=== PATIENT | female | born 1945 | race Caucasian/White ===

== ENCOUNTER 2016-11-22 06:29 | Inpatient (IN) | payer MEDICARE, OTHER ==
[~2016-11-22] VITALS: Ht 157.5 cm; Wt 128.2 kg
[~2016-11-22 06:29] MED LIST: ALLO100T30 PO; ASPI-515; ASPI-621 PO; CARV-39 PO; CARV25TA12 PO; CARV6.252; EZET10TA18 PO; FURO-92 PO; GLIP2.5T3 PO; GLIP5TAB22; LEVO25CA2; LEVO50TA5 PO; LISI40TA PO; METF-162 PO; OMEG1CAP24 PO; OXYC-302; POTA10TA5 PO; POTA20TA14; POTA20TA14 PO; PRAV20TA2 PO; SIMV40TA3; TRAM50TA2 PO
[2016-11-22] MEDS ORDERED: KETOROLAC 30 MG/1 ML IVPush ONE (07:00)
[2016-11-22] MEDS ORDERED: KETOROLAC 30 MG/1 ML ONE (07:04)
[2016-11-22 07:20] LABS: HEMATOCRIT 37.7 % (34.6-47.8); WHITE BLOOD COUNT 13.3 x10^3/uL (3.4-10)
[2016-11-22 07:21] LABS: BLOOD UREA NITROGEN 31 mg/dL (7-18)
[2016-11-22 12:30] VITALS: BP 116/65
[2016-11-22] MEDS: SODIUM CHLORIDE 0.9% 1,000 ML IV SCH (14:51)
[2016-11-22] MEDS ORDERED: ACETAMINOPHEN 325 MG TABLET PO PRN (15:00)
[2016-11-22] MEDS ORDERED: LABETALOL 5MG/ML, 20ML IVPush PRN (15:00)
[2016-11-22] MEDS ORDERED: ONDANSETRON 2MG/ML, 2ML IVPush PRN (15:00)
[2016-11-22] MEDS ORDERED: DOCUSATE 100 MG CAPSULE PO PRN (15:00)
[2016-11-22] MEDS ORDERED: BISACODYL 10 MG SUPP PR PRN (15:00)
[2016-11-22] MEDS ORDERED: POLYETHYLENE GLYCOL 17 GM PACKET PO PRN (15:00)
[2016-11-22] MEDS ORDERED: ONDANSETRON ODT 4 MG PO PRN (15:00)
[2016-11-22] MEDS ORDERED: morphine SULFATE 10 MG/ML, 1ML IVPush PRN (15:00)
[2016-11-22] MEDS ORDERED: COLCHICINE 0.6 MG TABLET PO SCH (15:00)
[2016-11-22] MEDS ORDERED: COLCHICINE 0.6 MG TABLET PO ONE (15:03)
[2016-11-22 15:54] LABS: BLOOD UREA NITROGEN 37 mg/dL (7-18)
[2016-11-22 15:59] LABS: ASPARTATE AMINO TRANSFERASE 10 U/L (15-37)
[2016-11-22] MEDS ORDERED: GLUCAGON 1 MG IM PRN (16:00)
[2016-11-22] MEDS ORDERED: DEXTROSE 4 GM TAB.CHEW PO PRN (16:00)
[2016-11-22] MEDS ORDERED: DEXTROSE 50%, 50ML SYRINGE IVPush PRN (16:00)
[2016-11-22] MEDS: INSULIN ASPART 100 UNITS/ML, PEN SQ-INSULIN SCH ×2 (16:40→21:00)
[2016-11-22] MEDS: HEPARIN 5,000 UNITS/ML, 1ML SQ SCH (16:41)
[2016-11-22] MEDS: SODIUM CHLORIDE FLUSH 10ML SYR IVF SCH (19:14)
[2016-11-22 19:44] VITALS: BP 131/74
[2016-11-22] MEDS: PRAVASTATIN 20 MG TABLET PO SCH (20:48)
[2016-11-23] MEDS: SODIUM CHLORIDE 0.9% 1,000 ML IV SCH ×3 (00:52→17:04)
[2016-11-23 02:56] VITALS: BP 146/67
[2016-11-23] MEDS: ASPIRIN 81 MG TABLET EC PO SCH (04:59)
[2016-11-23] MEDS: LEVOTHYROXINE 50 MCG TABLET PO SCH (04:59)
[2016-11-23] MEDS: HEPARIN 5,000 UNITS/ML, 1ML SQ SCH ×3 (04:59→20:29)
[2016-11-23 05:04] LABS: HEMATOCRIT 35.3 % (34.6-47.8); HEMOGLOBIN 11.5 g/dL (11.7-16.4); WHITE BLOOD COUNT 11.5 x10^3/uL (3.4-10)
[2016-11-23 05:21] LABS: ASPARTATE AMINO TRANSFERASE 18 U/L (15-37); BLOOD UREA NITROGEN 38 mg/dL (7-18)
[2016-11-23] MEDS: INSULIN ASPART 100 UNITS/ML, PEN SQ-INSULIN SCH ×4 (07:00→20:28)
[2016-11-23 07:34] VITALS: BP 124/75
[2016-11-23] MEDS: SODIUM CHLORIDE FLUSH 10ML SYR IVF SCH ×2 (08:15→20:29)
[2016-11-23] MEDS: LISINOPRIL 20 MG TABLET PO SCH (08:15)
[2016-11-23] MEDS: EZETIMIBE 10 MG TABLET PO SCH (08:15)
[2016-11-23 13:43] VITALS: BP 134/74
[2016-11-23] MEDS: CARVEDILOL 25 MG TABLET PO SCH (18:15)
[2016-11-23 18:41] VITALS: BP 154/81
[2016-11-23] MEDS: PRAVASTATIN 20 MG TABLET PO SCH (20:29)
[2016-11-24 00:56] VITALS: BP 131/77
[2016-11-24 05:19] LABS: HEMATOCRIT 33.6 % (34.6-47.8); HEMOGLOBIN 10.8 g/dL (11.7-16.4); WHITE BLOOD COUNT 13.2 x10^3/uL (3.4-10)
[2016-11-24 05:28] LABS: BLOOD UREA NITROGEN 34 mg/dL (7-18)
[2016-11-24] MEDS: CARVEDILOL 25 MG TABLET PO SCH ×2 (05:30→18:22)
[2016-11-24] MEDS: LEVOTHYROXINE 50 MCG TABLET PO SCH (05:30)
[2016-11-24] MEDS: ASPIRIN 81 MG TABLET EC PO SCH (05:30)
[2016-11-24] MEDS: HEPARIN 5,000 UNITS/ML, 1ML SQ SCH ×3 (05:30→22:31)
[2016-11-24 06:33] VITALS: BP 117/68
[2016-11-24] MEDS: INSULIN ASPART 100 UNITS/ML, PEN SQ-INSULIN SCH ×4 (07:00→21:00)
[2016-11-24] MEDS: ALLOPURINOL 100 MG TABLET PO SCH (08:52)
[2016-11-24] MEDS: LISINOPRIL 20 MG TABLET PO SCH (08:52)
[2016-11-24] MEDS: EZETIMIBE 10 MG TABLET PO SCH (08:52)
[2016-11-24] MEDS: SODIUM CHLORIDE FLUSH 10ML SYR IVF SCH ×2 (08:55→21:00)
[2016-11-24 12:55] VITALS: BP 152/84
[2016-11-24] MEDS ORDERED: DEXTROSE 50%, 50ML SYRINGE IVPush PRN (14:30)
[2016-11-24] MEDS ORDERED: BISACODYL 10 MG SUPP PR PRN (14:30)
[2016-11-24] MEDS ORDERED: DOCUSATE 100 MG CAPSULE PO PRN (14:30)
[2016-11-24] MEDS ORDERED: DEXTROSE 4 GM TAB.CHEW PO PRN (14:30)
[2016-11-24] MEDS ORDERED: GLUCAGON 1 MG IM PRN (14:30)
[2016-11-24] MEDS ORDERED: ACETAMINOPHEN 325 MG TABLET PO PRN (14:30)
[2016-11-24] MEDS ORDERED: ONDANSETRON ODT 4 MG PO PRN (14:30)
[2016-11-24] MEDS ORDERED: POLYETHYLENE GLYCOL 17 GM PACKET PO PRN (14:30)
[2016-11-24] MEDS ORDERED: morphine SULFATE 10 MG/ML, 1ML IVPush PRN (14:30)
[2016-11-24] MEDS ORDERED: ONDANSETRON 2MG/ML, 2ML IVPush PRN (14:30)
[2016-11-24] MEDS ORDERED: LABETALOL 5MG/ML, 20ML IVPush PRN (14:30)
[2016-11-24] MEDS ORDERED: SODIUM CHLORIDE 0.9% 1,000 ML IV SCH (14:51)
[2016-11-24 16:29] VITALS: BP 135/83
[2016-11-24] MEDS: FUROSEMIDE 40 MG TABLET PO SCH (16:30)
[2016-11-24 18:22] VITALS: BP 151/73
[2016-11-24 19:10] VITALS: BP 151/79
[2016-11-24] MEDS: PRAVASTATIN 20 MG TABLET PO SCH (22:31)
[2016-11-25 01:49] VITALS: BP 156/78
[2016-11-25 04:42] LABS: HEMATOCRIT 34.2 % (34.6-47.8); HEMOGLOBIN 11.1 g/dL (11.7-16.4); WHITE BLOOD COUNT 10.3 x10^3/uL (3.4-10)
[2016-11-25 04:47] LABS: BLOOD UREA NITROGEN 34 mg/dL (7-18)
[2016-11-25] MEDS: LEVOTHYROXINE 50 MCG TABLET PO SCH (05:56)
[2016-11-25] MEDS: HEPARIN 5,000 UNITS/ML, 1ML SQ SCH ×3 (05:56→20:56)
[2016-11-25] MEDS: ASPIRIN 81 MG TABLET EC PO SCH (05:56)
[2016-11-25] MEDS: CARVEDILOL 25 MG TABLET PO SCH ×2 (05:56→16:57)
[2016-11-25 06:39] VITALS: BP 144/78
[2016-11-25] MEDS: INSULIN ASPART 100 UNITS/ML, PEN SQ-INSULIN SCH ×4 (07:45→20:55)
[2016-11-25] MEDS: ALLOPURINOL 100 MG TABLET PO SCH (07:51)
[2016-11-25] MEDS: LISINOPRIL 20 MG TABLET PO SCH (07:51)
[2016-11-25] MEDS: EZETIMIBE 10 MG TABLET PO SCH (07:51)
[2016-11-25] MEDS: FUROSEMIDE 40 MG TABLET PO SCH (07:52)
[2016-11-25] MEDS: SODIUM CHLORIDE FLUSH 10ML SYR IVF SCH ×2 (07:52→20:56)
[2016-11-25 12:41] VITALS: BP 131/78
[2016-11-25 19:10] VITALS: BP 147/78
[2016-11-25] MEDS: PRAVASTATIN 20 MG TABLET PO SCH (20:55)
[2016-11-26 01:12] VITALS: BP 143/80
[2016-11-26] MEDS: LEVOTHYROXINE 50 MCG TABLET PO SCH (05:56)
[2016-11-26] MEDS: ASPIRIN 81 MG TABLET EC PO SCH (05:56)
[2016-11-26] MEDS: CARVEDILOL 25 MG TABLET PO SCH (05:56)
[2016-11-26] MEDS: HEPARIN 5,000 UNITS/ML, 1ML SQ SCH ×2 (05:56→13:20)
[2016-11-26] MEDS: INSULIN ASPART 100 UNITS/ML, PEN SQ-INSULIN SCH ×2 (07:00→11:01)
[2016-11-26 07:04] VITALS: BP 142/64
[2016-11-26] MEDS ORDERED: TRAM50TA2 PO (08:43)
[2016-11-26] MEDS ORDERED: INSU100I18 SQ-INSULIN (08:43)
[2016-11-26] MEDS ORDERED: PRED20TA PO (08:43)
[2016-11-26] MEDS: SODIUM CHLORIDE FLUSH 10ML SYR IVF SCH (09:00)
[2016-11-26] MEDS: FUROSEMIDE 40 MG TABLET PO SCH (09:35)
[2016-11-26] MEDS: EZETIMIBE 10 MG TABLET PO SCH (09:36)
[2016-11-26] MEDS: LISINOPRIL 20 MG TABLET PO SCH (09:36)
[2016-11-26] MEDS: ALLOPURINOL 100 MG TABLET PO SCH (09:36)
[2016-11-26 12:27] VITALS: BP 142/74
== END 2016-11-26 14:37 | DRG 553 ==
LOC: ED 06:48 → EDIP 09:28 → 3NE 12:08
PROVIDERS: ADMIT Internal Medicine; ATTEND Internal Medicine
DX: M10.9 Gout, unspecified (principal); N17.0 Acute kidney failure with tubular necrosis; J96.10 Chronic respiratory failure, unspecified whether with hypoxia or hypercapnia; I50.30 Unspecified diastolic (congestive) heart failure; I13.0 Hypertensive heart and chronic kidney disease with heart failure and stage 1 through stage 4 chronic kidney disease, or unspecified chronic kidney disease; Z68.43 Body mass index [BMI] 50.0-59.9, adult; E66.01 Morbid (severe) obesity due to excess calories; E03.9 Hypothyroidism, unspecified; E11.22 Type 2 diabetes mellitus with diabetic chronic kidney disease; E11.65 Type 2 diabetes mellitus with hyperglycemia; E78.00 Pure hypercholesterolemia, unspecified; E78.5 Hyperlipidemia, unspecified; R26.2 Difficulty in walking, not elsewhere classified; M25.572 Pain in left ankle and joints of left foot; I25.10 Atherosclerotic heart disease of native coronary artery without angina pectoris; N18.9 Chronic kidney disease, unspecified; T38.0X5A Adverse effect of glucocorticoids and synthetic analogues, initial encounter; Y92.89 Other specified places as the place of occurrence of the external cause; Z79.84 Long term (current) use of oral hypoglycemic drugs; Z99.81 Dependence on supplemental oxygen; Z88.8 Allergy status to other drugs, medicaments and biological substances; Z88.1 Allergy status to other antibiotic agents; Z79.82 Long term (current) use of aspirin; Z79.899 Other long term (current) drug therapy
CPT/HCPCS: 36415; 71010; 80048; 80053; 82040; 82962; 84550; 85025; 93970; 96374; J1644; J1815; J1885; J7030; J7512

== ENCOUNTER → 2017-11-03 | Outpatient (CLI) | payer MEDICARE, OTHER ==
[~2017-11-03] MED LIST changes: +INSU100I18 SQ-INSULIN; +PRED20TA PO
== END | disposition home or self-care (01) ==
LOC: CVU 16:01
PROVIDERS: ATTEND Internal Medicine Cardiovascular Disease
DX: I08.2 Rheumatic disorders of both aortic and tricuspid valves (principal); I25.119 Atherosclerotic heart disease of native coronary artery with unspecified angina pectoris
CPT/HCPCS: 93306

== ENCOUNTER → 2020-08-17 | Outpatient (CLI) | payer MEDICARE, OTHER ==
[~2020-08-17] MED LIST changes: +ACID1TAB7 PO; +AMLO5TAB4 PO; +APIX5TAB PO; -ASPI-515; -ASPI-621 PO; +ASPI-963; +ASPI81TA45 PO; -EZET10TA18 PO; +EZET10TA70 PO; +FURO40TA6 PO; +LEVO750T26 PO; -LISI40TA PO; +LISI40TA9 PO; -OXYC-302; +OXYC1TAB14; +POLY17PO5 PO; +POTA20PA25 PO; +REGADENOSON 0.4 MG/5 ML SYRINGE ONE; +SIMV40TA20; -SIMV40TA3
== END | disposition home or self-care (01) ==
LOC: CVU 08-16 06:53 → RAD 07:35
PROVIDERS: ATTEND Internal Medicine Cardiovascular Disease
DX: I08.3 Combined rheumatic disorders of mitral, aortic and tricuspid valves (principal); I48.91 Unspecified atrial fibrillation; I11.9 Hypertensive heart disease without heart failure; E11.9 Type 2 diabetes mellitus without complications; I12.9 Hypertensive chronic kidney disease with stage 1 through stage 4 chronic kidney disease, or unspecified chronic kidney disease; N18.9 Chronic kidney disease, unspecified; I25.10 Atherosclerotic heart disease of native coronary artery without angina pectoris
CPT/HCPCS: 93306; J2785; 78452; 93017; A9502